=== PATIENT | male | born 1955 | race Caucasian/White ===

== ENCOUNTER 2020-01-26 20:14 | Emergency (ER) | payer MEDICARE, OTHER ==
[2020-01-26] MEDS ORDERED: diphenhydrAMINE 50 MG/ML VIAL ONE (20:29)
[2020-01-26] MEDS ORDERED: Ondansetron PF 4 MG/2 ML Vial ONE (20:29)
[2020-01-26 21:16] LABS: #Basophils 0.1 thou/uL (0.0-0.2); #Eosinphils 0.5 thou/uL (0.0-0.7); #Lymphocytes 1.3 thou/uL (1.20-3.40); #Monocytes 0.7 thou/uL (0.11-0.59); #Neutrophils 5.3 thou/uL (1.40-6.50); %Basophils 0.9 % (0.0-1.0); %Eosinophils 6.6 % (0.0-10.0); %Lymphocytes 16.2 % (21.0-51.0); %Monocytes 8.6 % (0.0-10.0); %Neutrophils 67.6 % (42.0-75.0); Hemoglobin 13.4 g/dL (14.0-18.0); Mean Corpuscular HGB CONC 33.8 g/dL (32.0-36.0); Mean Corpuscular Hemoglobin 31.1 pg (27.0-31.0); Mean Corpuscular Volume 92.2 fL (78.0-98.0); Mean Platelet Volume 7.1 fL (7.4-10.4); Platelet Count 372 thou/uL (130-400); RBC Distribution Width 10.6 % (11.5-14.5); White Blood Cell (WBC) Count 7.9 thou/uL (4.8-10.8)
[2020-01-26 21:41] LABS: ALT (SGPT) 171 U/L (8-55); AST (SGOT) 83 U/L (5-34); Albumin 3.7 g/dL (3.4-4.8); Alkaline Phosphatase 274 U/L (40-110); Anion Gap 12 mmol/L (10-20); BUN (Urea Nitrogen) 21 mg/dL (8.4-25.7); Bilirubin, Total 0.3 mg/dL (0.2-1.2); Calc. Creatinine Clearance 0 mL/min (70-130); Carbon Dioxide 26 mmol/L (23-31); Chloride 104 mmol/L (98-107); Estimated GFR-MDRD 57; Globulin 3.4 g/dL (2.4-3.5); Glucose 119 mg/dL (80-115); Potassium 3.6 mmol/L (3.5-5.1); Protein, Total 7.1 g/dL (5.8-8.1); Sodium 138 mmol/L (136-145)
[2020-01-26 21:49] LABS: Bilirubin Negative (Negative); Blood, Urine Negative (Negative); Clarity Clear (Clear); Glucose, Urine (Dipstick) Normal (Negative); Ketone, Urine Negative (Negative); Leukocyte Negative Leu/uL (Negative); Nitrite Negative (Negative); Protein, Urine (Dipstick) Negative (Neg-Trace); Specific Gravity, Urine 1.015 (1.002-1.036); Urobilinogen Normal mg/dL (Less than 2); pH, Urine 5.5 (5.0-9.0)
--- NOTE | 2020-01-26 21:51 | CT ---
HEAD CT WITHOUT CONTRAST: History: Double vision, cold and clammy. Throat closing up. Comparison: None FINDINGS: No parenchymal hemorrhage. No extraaxial hematoma. No midline shift. Basilar cisterns are patent. Brain volume is age appropriate. Cortical bobo white matter differentiation is preserved. No hydrocephalus. Adequate aeration of the sinuses and mastoid air cells. Intact calvarium. IMPRESSION: No acute intracranial process. POS: PPP
--- NOTE | 2020-01-26 21:53 | RAD ---
CHEST ONE VIEW: Comparison: 05-15-07 History: Possible allergic reaction to new medication. Shortness of breath. FINDINGS: Normal cardiac silhouette. The pulmonary vessels and hilum are normal. Costophrenic angles are clear. No consolidation or mass. No pneumothorax or acute osseous abnormality. IMPRESSION: No acute cardiopulmonary process. POS: PPP
== END 2020-01-26 22:00 | disposition home or self-care (01) ==
LOC: ERS 20:14
DX: R06.02 Shortness of breath (principal); R22.0 Localized swelling, mass and lump, head; R09.89 Other specified symptoms and signs involving the circulatory and respiratory systems; T39.395A Adverse effect of other nonsteroidal anti-inflammatory drugs [NSAID], initial encounter; R74.8 Abnormal levels of other serum enzymes; R51.9 Headache, unspecified; H15.009 Unspecified scleritis, unspecified eye; H15.001 Unspecified scleritis, right eye; E03.9 Hypothyroidism, unspecified; Z79.899 Other long term (current) drug therapy
CPT/HCPCS: 36415; 70450; 71045; 80053; 81003; 84484; 85025; 93005; 96374; 96375; J1200; J2405